=== PATIENT | male | born 1955 | race Caucasian/White ===

== ENCOUNTER 2019-03-15 15:25 | Inpatient (IN) | payer OTHER ==
[~2019-03-15] VITALS: Ht 177.8 cm; Wt 116.4 kg
[~2019-03-15 15:25] MED LIST: CHOL10002 PO; METO25ER PO
[2019-03-15 15:48] LABS: BASOPHILS ABSOLUTE AUTO 0.03 K/mm3 (0.00-0.23); BASOPHILS PERCENT AUTO 0 % (0-2); EOSINOPHILS ABSOLUTE AUTO 0.64 K/mm3 (0.00-0.68); EOSINOPHILS PERCENT AUTO 7 % (0-6); Hematocrit 41.9 % (37.0-53.0); Hemoglobin 13.8 g/dL (13.5-17.5); IMMATURE GRAN ABSOLUTE AUTO 0.02 K/mm3 (0.00-0.10); IMMATURE GRAN PERCENT AUTO 0 % (0-1); LYMPHOCYTES ABSOLUTE AUTO 1.51 K/mm3 (0.84-5.20); LYMPHOCYTES PERCENT AUTO 16 % (21-46); MONOCYTES ABSOLUTE AUTO 0.64 K/mm3 (0.16-1.47); MONOCYTES PERCENT AUTO 7 % (4-13); Mean Corpuscular HGB 28.6 pg (26.0-34.0); Mean Corpuscular HGB Conc 32.9 g/dL (31.5-36.5); Mean Corpuscular Volume 87 fL (80-100); Mean Platelet Volume 9.2 fL (9.1-12.4); NEUTROPHILS ABSOLUTE AUTO 6.67 K/mm3 (1.96-9.15); NEUTROPHILS PERCENT AUTO 70 % (41-73); Platelet Count 362 K/mm3 (150-400); RDW Coefficient Variation 13.4 % (11.7-14.2); RDW Standard Deviation 42.3 fL (35.1-46.3); Red Blood Cell Count 4.82 M/mm3 (4.30-5.90); White Blood Cell Count 9.51 K/mm3 (4.00-11.30)
[2019-03-15 16:11] LABS: Alanine Aminotransfer (ALT/SGP 36 U/L (12-78); Albumin, Blood 3.7 g/dL (3.4-5.0); Albumin/Globulin Ratio 0.8 (0.8-1.8); Alk Phos 98 U/L (50-136); Anion Gap 7 mmol/L (6-16); Aspartate Aminotrans (AST/SGOT 17 U/L (12-37); Bilirubin, Total 0.4 mg/dL (0.1-1.0); Blood Urea Nitrogen 20 mg/dL (8-24); Bun/Creatinine Ratio 19.6 (12.0-20.0); CO2, Blood 27 mmol/L (21-32); Calcium, Blood 9.3 mg/dL (8.5-10.1); Chloride, Blood 106 mmol/L (98-108); Creatinine, Blood 1.02 mg/dL (0.60-1.20); Globulin, Blood 4.7 g/dL (2.2-4.0); Glomerular Filtration Rate >60 (60-); Glucose, Blood 141 mg/dL (70-99); Potassium, Blood 3.4 mmol/L (3.5-5.5); Sodium, Blood 140 mmol/L (136-145); Total Protein, Blood 8.4 g/dL (6.4-8.2)
[2019-03-15 16:12] LABS: International Normalized Ratio 0.99; Prothrombin Time Results 10.6 Sec (9.7-11.5)
[2019-03-15 17:56] LABS: CHOL/HDL RATIO 6.7; Cholesterol 209 mg/dL (50-200); HDL Cholesterol 31 mg/dL (>39); LDL/HDL RATIO 4.2; Low Density Lipoprotein Chol 129 mg/dL (0-110); Triglycerides 244 mg/dL (30-160); Very Low Density Lipoprot Chol 48 mg/dL (6-32)
--- NOTE | 2019-03-15 18:51 | NUR ---
PT ARRIVED FROM ED VIA GURNEY. DENIES PAIN. A&O X 2, SLURRED SPEECH, R FACIAL DROOP, R EYE PTOSIS; PUPILS EQUAL AND REACTIVE, BUT R EYE HAS DIFFICULTY FOCUSING. RUE AND RLE FLACCID. HIGH ASPIRATION RISK; HOB ELEVATED TO 45 DEGREES, SUCTION ON AND READY TO USE, NO WATER AT BEDSIDE. EDUCATED PT ABOUT ASPIRATION RISK AND RATIONALE FOR NO PO INTAKE YET; NODDED UNDERSTANDING. PLACED PT ON 2 L/MIN NC WITH RESULTING O2 SAT 93%.
--- NOTE | 2019-03-15 19:38 | NUR ---
ASSUMED CARE OF PT AT 1900. REPORT RECEIVED AT BEDSIDE. PT PRESENTS IN BED. UNABLE TO USE UPPER RIGHT EXTREMITY. RIGHT FACIAL DROOP. VERY AFFECTED SPEECH. PT ALERT AND ORIENTED. ACKNOWLEDGES GREETING AND QUESTIONS. WILL REVIEW CHART AND PLAN OF CARE FOR THIS PT.
[2019-03-15] MEDS ORDERED: Vitamin D2000 UNIT PO (20:39)
--- NOTE | 2019-03-15 23:21 | NUR ---
SEED TECHNICIAN COMES TO ROOM. IS ABLE TO ASSIST IN ADMISSION SCREENING AND INTERVIEW. WHEN PT'S SEED TECHNICIAN WAS ABOUT TO LEAVE, PT BECOMES VERY UPSET AND ATTEMPTS TO REMOVE HIS OXYGEN AND IV. SEED TECHNICIAN HELPS TO CALM PT, AND TO REASSURE HIM. AT THIS TIME, PT CALM, AND IS RESTING IN BED. HAVE NOT BEEN ABLE TO ELLICIT ANY MOVENT FROM UPPER RIGHT EXTREMITY, AND HAVE NOTED ONLY SOME COARSE-GROSS MOVEMENT OF RIGHT LOWER.
--- NOTE | 2019-03-16 03:36 | NUR ---
PT BECOMES RESISTANT TO CARE WHEN EVERY HE DEMONSTRATES BEING SCARED, OR INCONTINENT TO URINE. PT CALMS WITH REDIRECTION. HAS REMOVED HIS NASAL CANNULA AT TIMES AND NEEDS TO BE ENCOURAGED TO WEAR. PT'S RIGHT UPPER EXTREMITY HAS REMAINED FLACCID DURING ASSESSMENTS. INTERESTING TO NOTE: WHEN DOING ROUNDS, FOUND PT WITH HIS RIGHT ARM UP ON HIS CHEST. WAS AT HIS SIDE EARLIER. WILL CONTINUE TO MONITOR FOR ANY CHANGES.
[2019-03-16 04:26] LABS: Hematocrit 39.4 % (37.0-53.0); Mean Corpuscular HGB 28.6 pg (26.0-34.0); Mean Corpuscular Volume 87 fL (80-100); Platelet Count 344 K/mm3 (150-400); RDW Coefficient Variation 13.6 % (11.7-14.2); RDW Standard Deviation 43.5 fL (35.1-46.3); Red Blood Cell Count 4.54 M/mm3 (4.30-5.90)
[2019-03-16 04:45] LABS: Anion Gap 5 mmol/L (6-16); Blood Urea Nitrogen 15 mg/dL (8-24); Bun/Creatinine Ratio 17.9 (12.0-20.0); CO2, Blood 24 mmol/L (21-32); Calcium, Blood 8.5 mg/dL (8.5-10.1); Chloride, Blood 112 mmol/L (98-108); Creatinine, Blood 0.84 mg/dL (0.60-1.20); Glomerular Filtration Rate >60 (60-); Glucose, Blood 99 mg/dL (70-99); Potassium, Blood 3.6 mmol/L (3.5-5.5); Sodium, Blood 141 mmol/L (136-145)
--- NOTE | 2019-03-16 06:59 | NUR ---
PT RESTING IN BED. HAS LEFT HIS OXYGEN IN PLACE. MAINTAINS > 90 PERCENT WITH 2 L/M. CONTINUES WITH RIGHT FACIAL DROOP. NO COMPLAINTS VOICED BY PT. WILL CONTINUE TO MONITOR PT, AND WILL REPORT OFF TO ONCOMING RN.
--- NOTE | 2019-03-16 08:45 | NUR ---
ASSUMED CARE / DR ALLEN: REPORT RECEIVED FROM LUCI Wu RN. ASSUMED CARE OF THIS PT AT APPROX 0700. ON ASSESSMENT, THE PT IS AWAKE, A&O TO SELF, FAMILY & FOLLOWING COMMANDS. LS ARE CLEAR, DIM IN BASES. PT ON 2L NC W/ O2 SATS > 92% ON AVG, OCCASIONAL DESATS TO 88% W/ AUDIBLE SNORING. MONITOR SHOWS SR W/ HR 60-70s, BP INCREASED W/ PERMISSIVE HYPERTENSION. NO GI COMPLAINTS, PT INCONTINENT OF URINE W/ ATTENDS IN PLACE. SKIN OVERALL CDI, SOME DRIED BLOOD NOTED AROUND PT's MOUTH HE IS BITING INSIDE OF R CHEEK UNKNOWINGLY. PT REFUSING MOST ORAL CARE & SPEECH EVAL, NEEDS CONSTANT REASSURANCE & THOROUGH EXPLANATIONS REGARDING CARE. PROVIDER AT BEDSIDE TO EVAL PT. STS OKAY TO TX TO MED FLOOR W/O TELE. WILL CONTINUE TO MONITOR & UPDATE NEEDED.
--- NOTE | 2019-03-16 18:02 | NUR ---
SHIFT SUMMARY PT ARRIVED TO ROOM AT ABOUT 1120. PT SLEEPING MOST OF THE SHIFT SINCE TRANSFER. AT 1753 PT FELL OUT OF BED ATTEMPTING TO "GO TO THE BATHROOM." BROOM BUNDLER WAS IN THE ROOM FEEDING PT DINNER JUST PRIOR TO FALL. VSS STABLE THOUGH PT HYPERTENSIVE AT 179/116, DR ALLEN NOTIFIED OF FALL AND HTN. LIFT USED TO TRANSFER PT BACK TO BED AFTER FALL. DENIES PAIN. PT WAS ABLE TO VOID IN URINAL WITH PVR OF 375ML. AWAITING BED PLACEMENT IN SCU AT THIS TIME. BED IN LOW POSITION, CALL LIGHT WITHIN REACH, BED ALARM ON AND VERIFIED WITH BROOM BUNDLER X2.
--- NOTE | 2019-03-17 04:45 | NUR ---
NOC SHIFT SUMMARY PT IS COOPERATIVE WITH CARE. R ARM AND LEG ARE FLACCID. FELL TO SLEEP SHORTLY AFTER EVENING MEDS. HAS NOT ATTEMPTED TO GET OUT OF BED THIS NIGHT. DOES NOT LIKE BEING AWOKEN DURING POSITION CHANGES. VSS THOUGH HE IS HYPERTENSIVE. NO ACUTE EVENTS NOTED. WILL CONTINUE TO MONITOR.
--- NOTE | 2019-03-17 11:27 | NUR ---
PATIENT BECAME VERY AGGITATED THIS MORNING AND BEGAN TO THROW THE APPLESAUCE THAT WAS IN HIS HANDS. I ATTEMPTED TO CALM THE PATIENT HOWEVER HE WAS NOT REDIRECTABLE AT THAT TIME. THE PATIENT WAS OFFERED HIS MEDICATIONS AND REFUSED ALL OF THEM. I OFFERED A FEW TIMES AND HE ADEMATELY REFUSED. ORAL CARE WAS OFFERED AND PATIENT DID ALLOW.
--- NOTE | 2019-03-17 13:46 | NUR ---
INFORMED DR ALLEN THAT PATIENT REFUSED ALL HIS MEDICATIONS THIS MORNING.
--- NOTE | 2019-03-17 14:47 | NUR ---
CALLED DR ALLEN AT 1445 REGARDING PATIENTS BP AT 195/100. DR ALLEN STATED THAT SO LONG SBP REMAINS LESS THAN 220 WE WILL CONTINUE TO JUST MONITOR.
--- NOTE | 2019-03-17 16:20 | NUR ---
SHIFT SUMMARY THE PATIENT HAS HAD UP AND DOWNS TODAY. HE BECOMES EASILY IRRITABLE AND IS HARD TO REDIRECT. BP ELEVATED AND DR ALLEN IS AWARE. PATIENT HAD A FEW ATTEMPTS CLIMBING OUT OF BED AND WAS ASSISTED BACK INTO BED EACH TIME. HIS SPEECH IS DIFFICULT TO UNDERSTAND BUT HE TRYS TO VERBALIZED HIS NEEDS. THE PATIENT CONTINUES ON IV ABX WITHOUT S/SX OF ADVERSE REACTIONS NOTED OR REPORTED. WILL CONTINUE TO MONITOR AND PROVIDE CARE AT THIS TIME.
--- NOTE | 2019-03-18 06:41 | NUR ---
NOC SHIFT SUMMARY PT IS EASSILY FRUSTRATED AND HAS LOUD OUTBURSTS. HIS R UPPER AND LOWER EXTREMETIES CONTINUE TO BE FLACCID THOUGH PT STATES HE HAS SENSATION IN THEM. ORAL CARE PERFORMED DURING THE EVENING. REFUSED AT NIGHT. DOES NOT USE CALL LIGHT. CALLS OUT LOUDLY. HAS SLEPT FOR MOST OF THE NIGHT. VSS. WILL CONTINUE TO MONITOR.
--- NOTE | 2019-03-18 09:52 | NUR ---
PT REQUESTING TO CONTINUE SLEEPING AT THIS TIME. PT REFUSING AM MEDS AND BREAKFAST. WILL REATTEMPT MEDICATION ADMINISTRATION WITH LUNCH.
[2019-03-18] MEDS ORDERED: ATOR40TA PO (16:20)
[2019-03-18] MEDS ORDERED: ASPI81CH PO (16:20)
[2019-03-18] MEDS ORDERED: CEFU500T30 PO (16:20)
[2019-03-18] MEDS ORDERED: CLOP75 PO (16:21)
--- NOTE | 2019-03-18 17:47 | NUR ---
SHIFT SUMMARY. 1739 PT DISCHARGED TO [facility] VIA [facility] TRANSPORT. IV REMOVED PRIOR TO D/C. 1744 REPORT GIVEN TO NURSE AT [facility]. PT REFUSED MEDICATIONS AND MOST CARE TODAY. EASILY AGITATED. NO NEW CHANGES.
== END 2019-03-18 17:37 | DRG 65 ==
LOC: ER 15:25 → ICUE 17:05 → MEDS 17:05 → ICUW 17:05 → MEDS 18:20 → ICUE 18:26 → MEDS 03-16 11:07
PROVIDERS: Emergency Medicine; ADMIT Hospitalist
DX: I63.9 Cerebral infarction, unspecified (principal); G81.01 Flaccid hemiplegia affecting right dominant side; F17.220 Nicotine dependence, chewing tobacco, uncomplicated; J32.4 Chronic pansinusitis; E87.5 Hyperkalemia; R47.81 Slurred speech; R53.1 Weakness
CPT/HCPCS: 70450; 70496; 70498; 70551; 80048; 80053; 80061; 85025; 85027; 85610; 85730; 92526; 92610; 93005; 93010; 93306; 97110; 97112; 97162; 97166; 97530; 97535; 99285-25; J0696; J1650; J7050; J7120; Q9967

== ENCOUNTER 2019-05-24 12:51 | Observation (INO) | payer OTHER ==
[~2019-05-24] VITALS: Ht 170.2 cm; Wt 81.7 kg
[2019-05-24 14:09] LABS: BASOPHILS ABSOLUTE AUTO 0.01 K/mm3 (0.00-0.23); BASOPHILS PERCENT AUTO 0 % (0-2); EOSINOPHILS ABSOLUTE AUTO 0.18 K/mm3 (0.00-0.68); EOSINOPHILS PERCENT AUTO 2 % (0-6); Hemoglobin 15.4 g/dL (13.5-17.5); IMMATURE GRAN ABSOLUTE AUTO 0.02 K/mm3 (0.00-0.10); IMMATURE GRAN PERCENT AUTO 0 % (0-1); LYMPHOCYTES ABSOLUTE AUTO 0.93 K/mm3 (0.84-5.20); LYMPHOCYTES PERCENT AUTO 12 % (21-46); MONOCYTES ABSOLUTE AUTO 0.59 K/mm3 (0.16-1.47); MONOCYTES PERCENT AUTO 8 % (4-13); Mean Corpuscular HGB Conc 34.2 g/dL (31.5-36.5); Mean Corpuscular Volume 85 fL (80-100); NEUTROPHILS ABSOLUTE AUTO 5.81 K/mm3 (1.96-9.15); NEUTROPHILS PERCENT AUTO 77 % (41-73); Platelet Count 351 K/mm3 (150-400); RDW Coefficient Variation 14.4 % (11.7-14.2); RDW Standard Deviation 43.7 fL (35.1-46.3); Red Blood Cell Count 5.31 M/mm3 (4.30-5.90); White Blood Cell Count 7.54 K/mm3 (4.00-11.30)
[2019-05-24] MEDS ORDERED: ATOR40TA PO (14:18)
[2019-05-24] MEDS ORDERED: ASPI325 PO (14:18)
[2019-05-24] MEDS ORDERED: CLOP75 PO (14:19)
[2019-05-24] MEDS ORDERED: BENEFIBER152 GM PO (14:20)
[2019-05-24] MEDS ORDERED: FAMO20 PO (14:20)
[2019-05-24] MEDS ORDERED: MIRALAX17 GM PO (14:21)
[2019-05-24] MEDS ORDERED: MIRT15 PO (14:22)
[2019-05-24] MEDS ORDERED: Amitiza8 MCG PO (14:23)
[2019-05-24] MEDS ORDERED: DOCU100 PO (14:24)
[2019-05-24] MEDS ORDERED: POTA10T PO (14:25)
[2019-05-24] MEDS ORDERED: METO10 PO (14:25)
[2019-05-24] MEDS ORDERED: ONDA4ODT SL (14:26)
[2019-05-24] MEDS ORDERED: ACET325 PO (14:27)
[2019-05-24] MEDS ORDERED: BISA10S PR (14:27)
[2019-05-24] MEDS ORDERED: MILK OF MA400 MG/5 M PO (14:29)
[2019-05-24] MEDS ORDERED: Clotrimazole15 GM TOP (14:30)
[2019-05-24 14:32] LABS: Magnesium, Blood 2.2 mg/dL (1.6-2.4); Phosphorus, Blood 2.4 mg/dL (2.5-4.9)
[2019-05-24 14:34] LABS: Alanine Aminotransfer (ALT/SGP 112 U/L (12-78); Albumin, Blood 3.3 g/dL (3.4-5.0); Albumin/Globulin Ratio 0.6 (0.8-1.8); Alk Phos 136 U/L (50-136); Anion Gap 7 mmol/L (6-16); Aspartate Aminotrans (AST/SGOT 40 U/L (12-37); Blood Urea Nitrogen 14 mg/dL (8-24); Bun/Creatinine Ratio 18.1 (12.0-20.0); CO2, Blood 32 mmol/L (21-32); Calcium, Blood 9.3 mg/dL (8.5-10.1); Chloride, Blood 97 mmol/L (98-108); Creatinine, Blood 0.77 mg/dL (0.60-1.20); Globulin, Blood 5.3 g/dL (2.2-4.0); Glomerular Filtration Rate >60 (60-); Glucose, Blood 99 mg/dL (70-99); Potassium, Blood 2.4 mmol/L (3.5-5.5); Sodium, Blood 136 mmol/L (136-145); Total Protein, Blood 8.6 g/dL (6.4-8.2)
--- NOTE | 2019-05-24 18:51 | NUR ---
NEW ER ADMIT 1730 PT IS RESIDENT OF [facility] ADMITTED FOR HYPOKALEMIA, 2.4. GIVEN K-RIDER IN ER, FINISHING ON ARRIVAL TO ROOM. [id number] INFUSION STARTED @ 100 ML/HR CONCURRENT w KPHOS @ 105 ML/HR. ORAL 40MEQ K+ GIVEN DILUTED IN H2O, PT STATE UNABLE TO TAKE AT ONCE, WILL TAKE SLOWLY. IV ZOFRAN GIVEN FOR NAUSEA. HE IS DEVELOPMENTALLY DELAYED, CHILDLIKE AFFECT. HX CVA Mar, R SIDED HEMIPLEGIA. CALM/PLEASANT. ORIENTED TO ROOM/CALL LIGHT.
[2019-05-24] MEDS ORDERED: Promethazi25 MG/1 M2 IM (23:22)
[2019-05-25 05:15] LABS: Anion Gap 6 mmol/L (6-16); Blood Urea Nitrogen 9 mg/dL (8-24); Bun/Creatinine Ratio 13.3 (12.0-20.0); CO2, Blood 30 mmol/L (21-32); Calcium, Blood 7.9 mg/dL (8.5-10.1); Chloride, Blood 104 mmol/L (98-108); Creatinine, Blood 0.68 mg/dL (0.60-1.20); Glomerular Filtration Rate >60 (60-); Glucose, Blood 102 mg/dL (70-99); Magnesium, Blood 1.9 mg/dL (1.6-2.4); Potassium, Blood 2.9 mmol/L (3.5-5.5); Sodium, Blood 140 mmol/L (136-145)
--- NOTE | 2019-05-25 05:43 | NUR ---
DR RODRIGUEZ called about potassium 2.9 on AM labs. He has had bites sips only during 12 hour shift. calls frequently able to communicate. No stool this shift for GI panel. On extensive scheduled bowel care at [facility] as well as GI meds including reglan and pepcid and IM phenergan PRN, scheduled oral zofran. No vomiting or complaints of pain. DR ordered 40 meq KCL IV x 1.
--- NOTE | 2019-05-25 12:10 | NUR ---
Patient is lying in bed and alert. Upon receiving an admit referral, I visit patient. Patient tells me about his medical history, his living arrangements and his support network. Patient tells me that his mood is very low and he is very disappointed about the current setbacks. I listen empathically, explore patient's zoroastrianism beliefs, normalize patient's experience and provide pastoral college and career counselor and prayer. Patient responds well and shows signs of an elevated mood. I will continue to remain available to patient and family.
--- NOTE | 2019-05-25 17:56 | NUR ---
SHIFT SUMMARY PT ALERT AND ORIENTED THROUGHOUT THIS SHIFT. PT ANXOIUS AND REQUESTING TO RETURN TO [facility]. PT'S HOME HELP AIDE CALLED TO REQUEST SWALLOW STUDY BE COMPLETE PRIOR TO DISCHARGE DUE TO PT'S RECENT WEIGHT LOSS AND N/V MEDICATIONS, FOOD, AND DRINKS. PT SPOKE WITH HOME HELP AIDE AND CALMED CONCIDERABLY. SWALLOW STUDY SCHEDULED FOR TOMORROW AM. PT CURRENTLY SLEEPING IN BED.
--- NOTE | 2019-05-25 21:01 | NUR ---
SCREAMING AT NURSE, DEMANDING TO "TALK TO (MY) BOSS" RE GOING HOME. cHARGE NURSES WENT INTO ROOM TO TALK WITH HIM. SEE THEIR DOCUMENTATION FOR DETAILS.
--- NOTE | 2019-05-25 22:39 | NUR ---
WAS SCREAMING AND AGITATED EARLIER, MARKETING PROGRAM MANAGER WAS NOTIFIED AND ONE TIME ORDER OF ATIVAN IV ORDERED AND WITH THE ASSISTANCE OF SECURITY WAS GIVEN. CURRENTLY RESTING QUIETLY. NO NOTED AGITATION AT THIS TIME. CALL LIGHT IN REACH.
--- NOTE | 2019-05-26 05:29 | NUR ---
AT [facility], WAS ANGRY AND AGITATED RE NOT GOING HOME. BECAME THREATENING TO STAFF. ATIVAN IV 2 MG ADMINISTERED, SLEPT SEVERAL HOURS AFTERWARDS. AWAKE EARLIER, APPOLOGIZED FOR HIS BEHAVIOR AND REQUESTED ASISTANCE TO GET TO BEDSIDE COMMODE. HOWEVER, NO BM OF THIS WRITING. WAS ASSISTED BACK TO BED. INCONT OF URINE. TELE WIRES REPLACED X 2 THIS SHIFT. SURRENTLY RESTING QUIETLY. CALL LIGHT IN REACH
--- NOTE | 2019-05-26 05:46 | NUR ---
INFECTION CONTROL CALLED, THEY REVIEWED THE ISO PRECAUTIONS AND SINCE PT HAS NOT HAD A BM FOR OVER 24 HRS, THE ISO ORDER WAS DC'D PER THAT ORDER. ISO PRECAUTIONS DISCONTINUED.
[2019-05-26 06:23] LABS: Anion Gap 6 mmol/L (6-16); Blood Urea Nitrogen 8 mg/dL (8-24); Bun/Creatinine Ratio 12.3 (12.0-20.0); CO2, Blood 28 mmol/L (21-32); Calcium, Blood 8.4 mg/dL (8.5-10.1); Chloride, Blood 105 mmol/L (98-108); Creatinine, Blood 0.65 mg/dL (0.60-1.20); Glomerular Filtration Rate >60 (60-); Glucose, Blood 95 mg/dL (70-99); Potassium, Blood 3.3 mmol/L (3.5-5.5); Sodium, Blood 139 mmol/L (136-145)
--- NOTE | 2019-05-26 09:38 | NUR ---
ALERT AT BASE LINE, REPORT RECEIVED FROM NOC NURSE, CALL LIGHT IN REACH, pot infusing low rate r/pain, r side flacid, good attitude, thinks he is at [facility], medicated as prescribed, at breakfast, will continue to monitor and treat
--- NOTE | 2019-05-26 12:11 | NUR ---
called saurabh at to provide dc report, reviewd discharge orders and new diet information, will work to get pt ready for 1330, aid reported pt had emisis with lunch (first bite), st stated wrong texture mix, tried it with given per st instructions and pt had no difficulty, informed dr she said she wanted to try to fulfill the pt expressed desire to return to [facility] and as long as ST feeding instructions were followed she felt it would be a safe discharge.
== END 2019-05-26 13:47 ==
LOC: ER 12:51 → MEDS 12:52 → ER 17:11 → MEDS 17:24
PROVIDERS: Physician Assistant; ADMIT Internal Medicine
DX: E87.6 Hypokalemia (principal); R63.4 Abnormal weight loss; R11.10 Vomiting, unspecified; R19.7 Diarrhea, unspecified; K82.8 Other specified diseases of gallbladder; I69.351 Hemiplegia and hemiparesis following cerebral infarction affecting right dominant side; E66.9 Obesity, unspecified; Z87.891 Personal history of nicotine dependence; Z79.82 Long term (current) use of aspirin; Z79.01 Long term (current) use of anticoagulants; Z88.0 Allergy status to penicillin; Z79.899 Other long term (current) drug therapy; Z79.02 Long term (current) use of antithrombotics/antiplatelets; Z68.28 Body mass index [BMI] 28.0-28.9, adult
CPT/HCPCS: 36415; 74176; 74230; 76705; 80048; 80053; 83690; 83735; 84100; 84132; 84484; 85025; 92611; 93005; 93010; 96365; 96366; 96368; 96372; 96375; 96376; 99285-25; G0378; J1650; J2060; J2405; J3480; J7030; J7060